=== PATIENT | female | born 1925 | race Caucasian/White ===

== ENCOUNTER 2016-06-23 03:01 | Emergency (ER) | payer OTHER, BC ==
[~2016-06-23] VITALS: Ht 170.2 cm; Wt 50.1 kg
[~2016-06-23 03:01] MED LIST: ARICEPT10 MG PO; ATIVAN1 MG PO; AZELASTINE HCL6 ML BOTH EYES; CARDIZEM30 MG PO; COLACE100 MG PO; DONEPEZIL HCL10 MG PO; DULCOLAX10 MG PR; ELIQUIS5 MG PO; FEOSOL325 MG PO; FERROUS SULFAT325 MG PO; FLEET ENEMA-AD118 ML PR; HYDROCODON-ACE1 EAC7 PO; IRON325 M1 PO; KEPPRA250 MG PO; LORATADINE10 M2 PO; LORTAB 5-325 M1 EACH PO; MILK OF MAGN PO; MUCINEX600 MG PO; NORCO 5/3251 TABLET PO; OMEPRAZOLE20 MG PO; PHILLIPS'400 MG/5 M PO; PRILOSEC20 MG PO; QUETIAPINE FUMA50 MG PO; SENEXON-S TABL1 EACH PO; SENNA S TABLET1 EACH PO; TRAMADOL HCL50 MG PO; TYLENOL REGULA325 MG PO; VICODIN ES 7.51 EAC1 PO; ZOFRAN4 MG PO; ZOLOFT25 MG PO
[2016-06-23 06:24] VITALS: BP 110/44
== END 2016-06-23 06:25 | disposition home or self-care (01) ==
LOC: EME 03:01
PROC: 0HQEXZZ Repair Left Lower Arm Skin, External Approach (ICD-10-PCS; principal; 2016-06-23)
DX: S51.012A Laceration without foreign body of left elbow, initial encounter (principal); W19.XXXA Unspecified fall, initial encounter; Y92.009 Unspecified place in unspecified non-institutional (private) residence as the place of occurrence of the external cause; F03.90 Unspecified dementia, unspecified severity, without behavioral disturbance, psychotic disturbance, mood disturbance, and anxiety; K21.9 Gastro-esophageal reflux disease without esophagitis; I10 Essential (primary) hypertension; Z91.81 History of falling; D64.9 Anemia, unspecified; Z85.3 Personal history of malignant neoplasm of breast; Z88.6 Allergy status to analgesic agent
CPT/HCPCS: 70450; 72125; 73080; 99281; 99284

== ENCOUNTER → 2016-08-02 | Outpatient (CLI) | payer OTHER, BC | END | disposition home or self-care (01) | LOC: NUC 10:57 | DX: C50.919 Malignant neoplasm of unspecified site of unspecified female breast (principal) | CPT/HCPCS: 78306; A9503 ==

== ENCOUNTER 2016-08-14 11:18 | Emergency (ER) | payer OTHER, BC ==
[~2016-08-14] VITALS: Ht 152.4 cm; Wt 49.5 kg
[2016-08-14 12:05] LABS: BASE EXCESS -1.1 mEq/L (-3 to +3); BICARBONATE 26.8 mEq/L (22-26); CARBOXY HGB 0.9 % (0-5); METHEMOGLOBIN 1.3 % (0-1.5); PCO2 57 mm Hg (35-45); pH 7.28 (7.35-7.45)
[2016-08-14 12:06] LABS: COMMENTS - BLOOD GASES A+C+; FI02 21 %; SITE LRA; TOTAL RESP RATE 14 resp/min
[2016-08-14 12:18] LABS: HEMATOCRIT 44.7 % (36.0-46.0); MCH 27.5 PG (29.0-34.0); MCHC 32.7 G/DL (30.0-36.0); MCV 84.2 FL (83-99); MEAN PLAT.VOLUME 10.6 uM^3 (9.5-12.4); PLATELET COUNT 98 K/uL (156-360); RBC DIS.WIDTH-CV 14.6 % (11.8-14.6); RBC DIS.WIDTH-SD 44.4 % (39-53); RED BLOOD COUNT 5.31 M/uL (3.80-5.20); WHITE BLOOD COUNT 3.5 K/uL (4.1-10.2)
[2016-08-14 12:21] LABS: BASE EXCESS -0.6 mEq/L (-3 to +3); BICARBONATE 26.3 mEq/L (22-26); CARBOXY HGB 1.6 % (0-5); METHEMOGLOBIN 0.9 % (0-1.5); PCO2 51 mm Hg (35-45); PO2 103 mm Hg (80-100); pH 7.32 (7.35-7.45)
[2016-08-14 12:22] LABS: COMMENTS - BLOOD GASES A+C+; DEVICE NC; O2 FLOW 2 L/MIN; SITE LRA; TOTAL RESP RATE 14 resp/min
[2016-08-14 12:27] LABS: CHLORIDE 105 mEq/L (99-109); POTASSIUM 3.6 mEq/L (3.7-5.4); SODIUM 142 mEq/L (136-147)
[2016-08-14 12:28] LABS: GLUCOSE 133 mg/dL (70-99)
[2016-08-14 12:30] LABS: ANION GAP 12 MEQ/L (2-14)
[2016-08-14 12:32] LABS: GFR ESTIMATE (CALCULATED) > 59 mL/min/
[2016-08-14 12:33] LABS: UREA NITROGEN (BUN) 19 mg/dL (9-23)
[2016-08-14 12:35] LABS: ADD MIUA? YES; BILIRUBIN NEGATIVE; BLOOD SMALL; COLOR YELLOW ((YELLOW)); GLUCOSE (STRIP) NEGATIVE; KETONES 20; LEUKOCYTES NEGATIVE; NITRITE NEGATIVE; PROTEIN (STRIP) 30; SPECIFIC GRAVITY 1.021 (1.000-1.030); UROBILINOGEN 0.2 MG/DL (0.2-1.0)
[2016-08-14 12:39] LABS: TROP-I INTERPRETATION NEGATIVE; TROPONIN-I < 0.01 ng/mL (0.0-0.30)
[2016-08-14 12:48] LABS: BACTERIA RARE /HPF; EPITHELIAL CELLS NONE SEEN /HPF; MUCUS TRACE /LPF; RED BLOOD CELLS 0-5 /HPF (0-5); UCUL ADDED? NO; UNCLASSIFIED CASTS 0-5 /LPF; WHITE BLOOD CELLS 0-5 /HPF (0-5)
[2016-08-14 16:10] LABS: TROP-I INTERPRETATION NEGATIVE; TROPONIN-I < 0.01 ng/mL (0.0-0.30)
[2016-08-14 16:40] VITALS: BP 137/68
== END 2016-08-14 17:58 ==
LOC: EME 11:18
PROVIDERS: Emergency Medicine
DX: R07.9 Chest pain, unspecified (principal); F03.90 Unspecified dementia, unspecified severity, without behavioral disturbance, psychotic disturbance, mood disturbance, and anxiety; C50.919 Malignant neoplasm of unspecified site of unspecified female breast; Z99.81 Dependence on supplemental oxygen
CPT/HCPCS: 36600; 71020; 80048; 81003; 82803; 83605; 84484; 85027; 87040; 93005; 94640; 99281; 99285